=== PATIENT | male | born 1955 | race Caucasian/White ===

== ENCOUNTER 2025-04-08 15:37 | Emergency (ER) | payer MEDICARE, SELFPAY ==
--- NOTE | ~2025-04-08 | CT_ITS ---
CTA chest PE protocol HISTORY:dyspnea, positive d-dimer . COMPARISON: None. TECHNIQUE: Following the noncontrasted gas plant dispatcher, axial images of the thorax were obtained following infusion of 100 cc of Isovue 370. Post-processing on an independent workstation was performed to reconstruct MIP images for evaluation of the thoracic vasculature. FINDINGS: There is no pulmonary embolism, aortic dissection, thoracic aneurysm or pericardial fluid. There are groundglass opacities bilaterally. There fat-containing mass in the left posterior chest wall measuring 3.2 x 1.6 cm. No pleural effusion or pneumothorax is noted. There is no axillary, mediastinal or hilar adenopathy. Hepatic cyst measures 6.8 cm. Review of bone windows demonstrates no osteoblastic or lytic lesions. IMPRESSION: There is no pulmonary embolism, aortic dissection, pericardial fluid or thoracic aneurysm. Groundglass opacities are present bilaterally. Fat-containing mass within the left posterior chest wall measuring 3.2 x [address] scans at this facility are performed using low dose modulation techniques as appropriate to perform exam including the following: automated exposure control; use of iterative reconstruction technique; adjustment of the mA and/or kV according to patient size (this includes techniques or standardized protocols for targeted exams where dose is matched to indication/reason for exam). Reviewed, dictated and finalized at location S. IMPRESSION: There is no pulmonary embolism, aortic dissection, pericardial fluid or thoraci c aneurysm. Groundglass opacities are present bilaterally. Fat-containing mass within the left posterior chest wall measuring 3.2 x 1.[address] scans at this facility are performed using low dose modulation techniqu es as appropriate to perform exam including the following: automated exposure c ontrol; use of iterative reconstruction technique; adjustment of the mA and/or kV according to patient size (this includes techniques or standardized protocol s for targeted exams where dose is matched to indication/reason for exam).
--- NOTE | ~2025-04-08 | XR_ITS ---
EXAMINATION: XR chest 2V, 04/08/2025 16:16 CDT HISTORY: dyspnea COMPARISON: No comparisons available. Technique: 2 views obtained. Findings: The lungs are clear, no effusion. No pneumothorax. Heart is normal size. Mediastinal and hilar contours are within normal limits. Bony thorax no acute abnormality. Impression: No acute cardiopulmonary abnormality. Reviewed, dictated and finalized at location P. Impression: No acute cardiopulmonary abnormality.
--- NOTE | ~2025-04-08 | US_ITS ---
EXAMINATION: US venous doppler LE RT, 04/08/2025 16:20 CDT HISTORY: leg swelling Comparison: None Technique: Herring-scale and color Doppler images were attempted of the lower saphenofemoral junction, common femoral vein,superficial femoral vein, proximal deep femoral vein, proximal deep femoral vein, popliteal vein and posterior tibial veins. Findings: Deep Venous System:Normal flow, augmentation and compressibility. No echogenic thrombus identified. The contralateral saphenofemoral junction appears unremarkable. Superficial Venous SystemNo superficial thrombophlebitis. Soft tissues: Soft tissues are unremarkable. Impression: Negative for DVT. Reviewed, dictated and finalized at location P. Impression: Negative for DVT.
[2025-04-08 15:42] VITALS: BP 155/82; PULSE 68; RESP 16; TEMP 36.6; O2SAT 98
[2025-04-08 15:50] VITALS: BP 146/85; PULSE 63; RESP 18; O2SAT 96
[2025-04-08 15:51] VITALS: PULSE 65; RESP 19; O2SAT 96
--- NOTE | 2025-04-08 15:57 | ECG_ITS ---
Test Date: 2025-04-08 16:06:55 Measurements Intervals [place] Rate: 55 P: -22 UT: 172 QRS: 46 QRSD: 87 T: 59 QT: 422 QTc: 407 Interpretive Statements SINUS BRADYCARDIA NONSPECIFIC T-WAVE ABNORMALITY- LAT/HIGH LAT LEADS BASELINE ARTIFACT- I, II, AVR, AVF BORDERLINE ECG No previous ECG available for comparison Electronically Signed On 04-08-2025 16:15:43 CDT by Alexy Garvin D.O.
--- NOTE | 2025-04-08 15:58 | ED_ITS ---
HPI - Extremity Problem General Chief complaint: Extremity Problem,Nontraumatic Stated complaint: R Leg Swelling Time Seen by Provider: 04/08/25 15:47 Source: patient and RN notes reviewed Mode of arrival: ambulatory Limitations: no limitations History of Present Illness HPI Narrative: 70-year-old male presents to the ER complaining of right lower leg swelling intermittently for the last month. Patient says gotten worse over the last couple days. Patient also reports intermittent pain in his leg. Patient denies any swelling to his left lower extremity. Patient also reports mild dyspnea but denies any chest pain. Patient denies any dizziness, lightheadedness, nausea vomiting, difficulty breathing, fevers, eczema chills, cough, or any other symptoms. Patient denies any cardiac history. Patient is from [place] and is down here on a trip. Related Data Allergies Allergy/AdvReac Type Severity Reaction Status Date / Time No Known Allergies Allergy Verified 04/08/25 15:40 Review of Systems 2 Review of Systems: CONSTITUTIONAL: Denies fever, chills, or sweats. EYES: Denies visual changes, redness, or discharge. ENT: Denies rhinorrhea, congestion, sore throat, or otalgia. CARDIOVASCULAR: Denies chest pain, palpitations, dizziness, lightheadedness, or orthopnea. Positive for edema. RESPIRATORY: Denies cough or dyspnea at rest, difficulty breathing. Positive for dyspnea with exertion. GASTROINTESTINAL: Denies abdominal pain, nausea, vomiting, or diarrhea. GENITOURINARY: Denies dysuria or hematuria. SKIN: Denies rash or itching. MUSCULOSKELETAL: Denies back pain, joint pain, or myalgia. NEUROLOGIC: Denies headache, numbness, or weakness. PSYCHIATRIC: Denies anxiety or depression. All other systems reviewed are negative, except as documented in HPI. PMFSH Comments At the time of my signature, I reviewed and agree with the nursing past medical, surgical, social, and family history. There is no relevant family history pertinent to the patient complaint. Exam 2 Narrative: GENERAL: This is a well-nourished, well-developed adult, in no apparent distress. They are non ill-appearing, nontoxic appearing. HEAD: normocephalic, atraumatic. EYES: Sclera clear/white. Conjunctiva normal. Vision is grossly intact. Extraocular movements intact EARS: External ears normal, Hearing grossly intact. NOSE: External nose normal THROAT: Mucous membranes moist, NECK: Neck supple, CARDIOVASCULAR: Regular rate and rhythm without murmurs, gallops, or rubs. RESPIRATORY: Diminished to bilateral lower lobes.. Breath sounds equal bilaterally. No wheezes, rales, or rhonchi. GASTROINTESTINAL: Abdomen soft, non-tender, nondistended. Bowel sounds are active. No hepato-splenomegaly, or palpable masses. No guarding. SKIN: warm, Dry, intact with no suspicious lesions or rash, good texture and turgor. NEURO: awake, alert, and oriented to person, place and time. There were no obvious focal neurologic abnormalities. EXTREMITIES: Right lower extremity: Mild pitting edema 1+, below the knee. Is swollen compared to the left lower extremity. Varicose veins are present. No palpable cord. No tenderness to the deep venous system. Capillary refill less than 2 seconds. Skin warm, pink, dry. Sensation intact. Neurovascular status intact. Course Course Emergency Course: Portions of this record may have been created with voice recognition software Vital Signs Vital signs: Vital Signs Temperature 97.8 F 04/08/25 15:42 Pulse Rate 68 04/08/25 15:42 Respiratory Rate 16 04/08/25 15:42 Blood Pressure 155/82 H 04/08/25 15:42 Pulse Oximetry 98 04/08/25 15:42 Oxygen Delivery Room Air 04/08/25 15:42 Temperature 97.8 F 04/08/25 15:42 Pulse Rate 65 04/08/25 15:51 Respiratory Rate 19 04/08/25 15:51 Blood Pressure 146/85 H 04/08/25 15:50 Pulse Oximetry 96 04/08/25 15:51 Oxygen Delivery Room Air 04/08/25 15:42 Reviewed MDM - Extremity (Nontraumatic) MDM Narrative Medical decision making narrative: Will rule out blood clot the patient's right lower extremity, given patient's shortness of breath, patient is having no chest pains, will obtain cardiac workup with CBC, CMP, D-dimer, troponin, coags, BNP, and chest x-ray patient's CBC is unremarkable,, chemistry unremarkable, BNP slightly elevated 289, not diagnostic for his age for heart failure, troponin negative, chest x-ray without any acute cardiopulmonary findings, venous Doppler study without any evidence of blood clot, patient has a positive D-dimer. Given patient's history of pulmonary embolisms will obtain chest CTA. Chest CTA shows ground-glass opacities to the bases of the lungs, no evidence of pulmonary embolism or any other acute findings.. Incidental finding of a fatty mass to the left posterior chest wall, likely lipoma. Discussed these findings with patient. Will treat for pneumonia with Augmentin and azithromycin. Patient vital signs hemodynamically stable. Patient nontoxic appearing, no apparent distress. Patient resting comfortably on stretcher. Discussed physical exam findings. Advised supportive measures and signs/symptoms to go to the ER. Pt is appropriate for outpt treatment and f/u. Differential Diagnosis Differential diagnosis: Likely lower extremity edema, deep vein thrombosis of lower extremity and other (Venous insufficiency, congestive heart failure, pulmonary edema, pulmonary embolism) Lab Data 04/08/25 16:10 04/08/25 16:10 Labs: Lab Results 04/08/25 Range/Units 16:10 WBC 7.7 (4.5-10.0) K/mm3 RBC 4.19 L (4.6-6.20) M/mm3 Hgb 12.7 L (14.0-18.0) g/dL Hct 38.5 L (42.0-52.0) % MCV 91.9 (80-100) fl MCH 30.3 (26-34) pg MCHC 33.0 (32-36) g/dl RDW 13.5 (11.5-14.5) % Plt Count 292 (150-375) k/mm3 MPV 10.0 (7.4-10.4) fl Immature Gran % (Auto) 0.5 (0-0.5) % Neut % (Auto) 85.6 H (45.5-73.1) % Lymph % (Auto) 9.2 L (18.3-44.2) % [place] % (Auto) 4.4 (2.6-8.5) % Eos % (Auto) 0.0 (0-4.4) % Baso % (Auto) 0.3 (0.2-1.2) % Lymph # (Auto) 0.71 L (0.9-3.2) K/mm3 [place] # (Auto) 0.3 (0.1-0.6) K/mm3 Eos # (Auto) 0.0 (0-0.3) K/mm3 Baso # (Auto) 0.0 (0.0-0.1) K/mm3 Abs Immat Gran (auto) 0.04 H (0.00-0.031) K/mm3 Absolute Neuts (auto) 6.6 (1.3-6.7) K/mm3 Absolute Nucleated RBC 0.000 (0.0-0.012) K/mm3 Nucleated RBC % 0.0 (0.0-0.2) % PT 13.0 (11.1-14.7) Seconds INR 1.0 APTT 26.6 (22.3-36.8) Seconds D-Dimer 1.34 H (<0.48) ug/mL Sodium 138 (137-145) mmol/L Potassium 4.0 (3.4-5.0) mmol/L Chloride 106 (98-107) mmol/L Carbon Dioxide 25 (22-30) mmol/L Anion Gap 7 (4-12) mmol/L BUN 16 (9-20) mg/dL Creatinine 0.82 (0.7-1.3) mg/dL Estim Creat Clear Calc 83 ml/min Estimated GFR > 60 (59 - ) Glucose 147 H (65-110) mg/dL Calcium 8.5 (8.4-10.2) mg/dL Total Bilirubin 0.8 (0.2-1.3) mg/dL AST 25 (17-59) U/L ALT 26 (6-50) U/L Alkaline Phosphatase 65 (38-126) U/L Troponin I < 0.012 (0.000-0.034) ng/mL NT-Pro-B Natriuret Pep 289 H (19.9-100) pg/mL Total Protein 6.5 (6.3-8.2) g/dL Albumin 4.0 (3.5-5.1) g/dL Imaging Data Radiologist's impression: ITS Impressions Chest X-Ray 04/08/25 16:35 Impression: No acute cardiopulmonary abnormality. Venous Doppler Study 04/08/25 16:59 Impression: Negative for DVT. Chest CTA 04/08/25 17:25 IMPRESSION: There is no pulmonary embolism, aortic dissection, pericardial fluid or thoracic aneurysm. Groundglass opacities are present bilaterally. Fat-containing mass within the left posterior chest wall measuring 3.2 x [address] scans at this facility are performed using low dose modulation techniques as appropriate to perform exam including the following: automated exposure control; use of iterative reconstruction technique; adjustment of the mA and/or kV according to patient size (this includes techniques or standardized protocols for targeted exams where dose is matched to indication/reason for exam). ECG Data EKG #1: Attestation EKG: I personally reviewed and interpreted this ECG as follows: ECG completion date: 04/08/25 ECG completion time: 16:06 Prior ECG tracings: not available for review EKG Interpretation: normal rate, bradycardia, sinus rhythm, no ST changes, normal QRS and NL axis Critical Care Time Critical Care Time Critical Care Time: No Discharge Plan Discharge Clinical Impression: Swelling of right lower extremity Pneumonia Qualifiers: Pneumonia type: due to unspecified organism Laterality: bilateral Lung location: lower lobe of lung Qualified Code(s): J18.9 - Pneumonia, unspecified organism Patient Disposition: Home Condition: Stable Instructions: Antibiotic Form, Pneumonia (ED), Venous Insufficiency (DC) Additional Instructions: There is no blood clot in her right lower extremity. Wear compression stockings to help with the swelling. Your chest CT does not show any evidence of a pulmonary embolism. Does show you have pneumonia. Cardiac workup was unremarkable today. Please take the antibiotics as directed, finish the course completely even if you start to feel better. Tylenol as needed for pain or fevers. Follow instructions on the bottle. Follow-up with your PCP in 3-5 days. Return to the ER if he developed worsening fevers, chest pains, difficulty breathing, vomiting, worsening leg swelling, dizziness, lightheadedness, or any serious concerns. Patient Language: [place] Prescriptions: New azithromycin 250 mg tablet See Rx Instructions .ROUTE .COMPLEX Qty: 6 0RF Rx Instructions: For 250 mg dose pack: take 500 mg today (day 1), then 250 mg for 4 days (days 2-5) amoxicillin-pot clavulanate 875-125 mg tablet 1 tablet PO Q12H 5 Days Qty: 10 0RF Follow-up/Referrals: PHYSICIAN NOT ON STAFF,NONSTAFF [Non-Staff] Time of Disposition: 17:52
[2025-04-08 16:19] LABS: Hematocrit 38.5 % (42.0-52.0); Hemoglobin 12.7 g/dL (14.0-18.0); Immature Granulocyte Percent A 0.5 % (0-0.5); Lymphocytes Absolute Auto 0.71 K/mm3 (0.9-3.2); Mean Corpuscular HGB Conc 33.0 g/dl (32-36); Mean Corpuscular Hemoglobin 30.3 pg (26-34); Mean Corpuscular Volume 91.9 fl (80-100); Nucleated Red Blood Cells Absolute Auto 0.000 K/mm3 (0.0-0.012); Nucleated Red Blood Cells Perc 0.0 % (0.0-0.2); Platelet Count Result 292 k/mm3 (150-375); Red Blood Count 4.19 M/mm3 (4.6-6.20); White Blood Count 7.7 K/mm3 (4.5-10.0)
[2025-04-08 16:26] LABS: INR 1.0; Prothrombin Time 13.0 Seconds (11.1-14.7)
[2025-04-08 16:27] LABS: Partial Thromboplastin Time 26.6 Seconds (22.3-36.8)
[2025-04-08 16:31] LABS: Alanine Aminotransferase 26 U/L (6-50); Albumin Level 4.0 g/dL (3.5-5.1); Alkaline Phosphatase 65 U/L (38-126); Anion Gap 7 mmol/L (4-12); Aspartate Amino Transferase 25 U/L (17-59); Bilirubin,Total 0.8 mg/dL (0.2-1.3); Blood Urea Nitrogen 16 mg/dL (9-20); Calcium 8.5 mg/dL (8.4-10.2); Carbon Dioxide 25 mmol/L (22-30); Chloride 106 mmol/L (98-107); Estimated CRCL calculation 83 ml/min; Estimated Glomerular Filt Rate > 60; Glucose 147 mg/dL (65-110); Potassium 4.0 mmol/L (3.4-5.0); Sodium 138 mmol/L (137-145); Total Protein 6.5 g/dL (6.3-8.2)
[2025-04-08 16:41] LABS: NT Pro B Type Natriuretic Pept 289 pg/mL (19.9-100); Troponin I < 0.012 ng/mL (0.000-0.034)
--- OUTSIDE RECORDS SUMMARY | 2025-04-08 17:08 | XMS_ITS | Encounter Summary ---
Author Organization [facility] Address [address] [place] [address] Phone Care Team Providers Care Beef Tagger Name Role Phone Provider, No-Primary Care Primary Care Provider Unavailable Neelam Landaverde MD, James Unavailable [phone] Sridevi Mack Primary Care Provider [phone] Arturo Orona MD Unavailable [phone] Joy Alvarez Primary Care Provider [phone] Encounter Details Date Type Department Care Team (Late st Contact Info) Description 09/26/2022 Pharmacy Visit [facility] - Pharmacy - Discharge [address] [place] [address] Social History Tobacco Use Types Packs/Day Years Used Date Smoking Tobacco: Never Smokeless Tobacco: Never Alcohol Use Standard Drinks/Week Comments Yes 2 (1 standard drink = 0.6 oz pur e alcohol) 1 or more times a month Abuse Risk Answer Date Recorded Are you in an UNsafe relationship? No 09/25/2022 Does your partner/boyfriend or girlfriend hit, kick, hurt, or threaten you? No 09/25/2022 Have you suffered any injury as a result of abuse in the past year? No 09/25/2022 Does your partner/boyfriend or girlfriend ever try to control you by threatening you or your family? No 04/12/2 023 Are you currently being forc ed to engage in sexual activity? No 09/25/2022 Are you being abused or thre atened in your work or home environment? No 09/25/2022 Are you being forced to work? No Is the patient a d ependent adult ? Does not apply 09/25/2022 Do you feel unsafe at home? No 09/14 Has anyone tried to force yo u to sign papers or to use your money against your will? No 09/25/2022 Sex and Gender Information Value Date Recorded Sex Assigned at Not on file Legal Sex Male 5:16 AM CDT Gender Identity Not on file Sexual Orientation Not on file Occupation Industry Job Start Date Job End Date [employer] Not on file Not on file Not on file documented as of this encounter Plan of Treatment Upcoming Encounters Date Type Department Care Team (Late st Contact Info) Description 01/30/2026 2:55 PM CDT Appointment [place] - IR - Radiology [address] [phone] 01/30/2026 4:00 PM CDT Appointment [facility] - Otolaryngology [address] [phone] Arturo Orona MD [address] [place] [phone] documented as of this encounter Visit Diagnoses Not on filedocumented in this encounter Additional Health Concerns Assessment Noted Time A fall risk assessment has been complete d for the patient 09/25/2022 8:49 PM CDT documented as of this encounter Care Teams Beef Tagger Relationship Specialty Start Date End Date Provider, No-Primary Care [place] PCP - General 02/07/23 03/31/24 Sridevi Mack [address] [place] [phone] PCP - General Family Practice 04/01/24 01/30/25 Joy Alvarez [address] [place] [phone] PCP - General Family Practice 01/31/25 Sukhdeep Richter MD [address] [place] [address] Orthopedic Surgery 02/07/23 08/03/23 Arturo Orona MD [address] [place] [address] Otolaryngology 04/01/24 documented as of this encounter
--- OUTSIDE RECORDS SUMMARY | 2025-04-08 17:08 | XMS_ITS | Clinical Summary ---
Author Organization [facility] Address [address] [place] [address] Care Team Providers Care Mica Laminating Machine Feeder Name Role Phone Unavailable Primary Care Provider Unavailabl e Source Comments This disclosure is being made pursuant to the [employer] program and maynot contain all information available regarding this patient.[employer] Allergies No known active allergies Medications rOPINIRole (REQUIP) 0.5 MG tablet Take by mouth. Take 1/2 or 1 tab at bedtime Active gabapentin (NEURONTIN) 300 MG capsule Take 300 mg by mouth. Take 1 in the morning and 2 tabs at night Active citalopram (CELEXA) 20 MG tablet Take 20 mg by mouth daily. Active Diclofenac Potassium 50 MG PACK Take by mouth. Take 1-1/2 tabs twice daily (75mg) Active aspirin 81 MG EC tablet Take 81 mg by mouth daily. Active [place] Gomes Wort 300 MG TABS Take 1 tablet by mouth daily. Active saw palmetto 160 MG capsule Take 160 mg by mouth every evening. Active doxazosin (CARDURA) 4 MG tablet Take 4 mg by mouth nightly. Active Loratadine-Pseu doephedrine (ALAVERT ALLERGY/SINUS PO) Take 1 tablet by mouth every 12 (twelve) hours. Active tadalafil (CIALIS) 5 MG tablet Take 5 mg by mouth as needed for Erectile Dysfunction. Active rivaroxaban (XARELTO) 20 MG TABS tablet Take 20 mg by mouth daily. Active mupirocin (BACTROBAN) 2 % ointment APPLY TO AFFECTED AREA(S) TWO TIMES A DAY 06/05/2020 Active sulfamethoxazol e-trimethoprim 800-160 MG per tablet Take 1 tablet by mouth 2 (two) times daily with meals. 06/12/2020 Active traMADol (ULTRAM) 50 MG tablet Take 50 mg by mouth every 12 (twelve) hours. 06/12/2020 Active Active Problems No known active problems Immunizations Immunization Administration Dates Next Due Influenza H1N1 preservative free 04/27/2009 Influenza, inactivated, quad rivalent, ALL AGES 6 months and older, single dose syringe/vial 03/25/2020 Influenza, unspecified formulation 02/24,03/31/2017,03/16/2017,2015,03/01/2013 LIVE Zoster (Zostavax) ZVL 05/06/2016 Pneumococcal Conjugate-13 (P revnar 13) PCV13 06/19/2018 Tetanus, diphtheria and acel lular pertussis (Boostrix)Tdap 11/19/2018 Zoster (Shingrix) RZV 05/22/2018,01/19/2018 Family History Medical History Relation Name Comments Heart disease Father Diabetes Mother Heart disease Mother Relation Name Status Comments Father Alive Mother Alive Social History Tobacco Use Types Packs/Day Years Used Date Smoking Tobacco: Never Smokeless Tobacco: Never Tobacco Cessation:Counseling Given: Yes Alcohol Use Standard Drinks/Week Comments Yes 0 (1 standard drink = 0.6 oz pur e alcohol) Sex and Gender Information Value Date Recorded Sex Assigned at Not on file Legal Sex Male 8:00 PM CDT Gender Identity Not on file Sexual Orientation Not on file Last Filed Vital Signs Vital Sign Reading Time Taken Comments Blood Pressure 146/88 09/27/2022 12:43 AM CDT Pulse 74 09/27/2022 12:43 AM CDT Temperature 37.1 C (98.8 F) 09/26/2022 9:08 PM CDT Respiratory Rate 18 09/27/2022 12:43 AM CDT Oxygen Saturation 98% 09/27/2022 12:43 AM CDT Inhaled Oxygen Concentration - - Weight 98.7 kg (217 lb 8 oz) 09/26/2022 9:08 PM CDT Height 182.9 cm (6') 09/26/2022 9:08 PM CDT Body Mass Index 29.5 09/26/2022 9:08 PM CDT Plan of Treatment Health Maintenance Due Date Last Done Comments CT Colonography 1957 Colonoscopy 1957 Colorectal Cancer Screening 1957 Fecal DNA Test 1957 Lab-Cholesterol Screening 1957 Sigmoidoscopy 1957 Annual Wellness Visit 1975 FOBT/FIT 1977 Pneumococcal Vaccines 50+ (2 of 2 - PCV20 or PCV21) 06/19/2019 06/19/2018 COVID-19 Vaccine (4 - 2024- season) 2025 05/16/2021, 09/29/2020, 09/01/2020 Influenza Vaccine (#1) 2025 , 03/28/2021, 03/25/2020, Additional history exists Tetanus/Pertussis Vaccine Teen/Adult (2 - Td or Tdap) 11/19/2028 11/19/2018 RSV Adult (1 - 1-dose 75+ series) 02/03/2032 Lab-Hepatitis C Screening Completed 01/12/2016 Zoster (Shingles) Vaccine 50+ Completed 05/22/2018, 01/19/2018, 05/06/2016 HIB Vaccine Aged Out No longer eligi ble based on patient's age to complete this topic HPV Vaccine (9-26yo & Shared Decision 27-45yo) Aged Out No longer eligible based on patient's age to complete this topic Hepatitis A Vaccine Aged Out No longe r eligible based on patient's age to complete this topic IPV Vaccine Aged Out No longer eligi ble based on patient's age to complete this topic Meningococcal Conjugate Vaccine Aged Out No longer eligible based on patient's age to complete this topic RSV < 20 Months Aged Out No longer el igible based on patient's age to complete this topic Procedures Procedure Name Priority Date/Time Associated Diagnosis Comments HEPATITIS C ANTIBODY Routine 01/12/2016 8:59 AM CDT from Last 3 Months or Most Recently Relevant to Health Maintenance Results * Hepatitis C antibody (01/12/2016 8:59 AM CDT) Hep C Ab NONREACTIVE NONREACTIVE [facility] Comment:@ 01/12/2016 8:59 AM CDT 01/12/2016 3:42 PM CDT us Huber Morin DO LAB BLOOD ORDERABLES Final Resul t Performing Organization Address City/State/[facility] Co de Phone Number [facility] [address] [place], [place] from Last 3 Months or Most Recently Relevant to Health Maintenance
--- OUTSIDE RECORDS SUMMARY | 2025-04-08 17:08 | XMS_ITS | Encounter Summary ---
Author Organization [facility] Care Address [address] [place] [address] Phone Care Team Providers Care Cosmetic Account Coordinator Name Role Phone Huber Morin Primary Care Provider [phone] Provider, No-Primary Care Unavailable Unasaman koenig Provider, No-Primary Care Primary Care Provider Unavailable Neelam Landaverde MD, Sukhdeep Unavailable [phone] Sridevi Mack Primary Care Provider [phone] Arturo Orona MD Unavailable [phone] Joy Alvarez Primary Care Provider [phone] Encounter Details Date Type Department Care Team (Late st Contact Info) Description 03/07/[address] 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 Not on file Not on file documented as of this encounter Plan of Treatment Upcoming Encounters Date Type Department Care Team (Late st Contact Info) Description 01/30/2026 2:55 PM CDT Appointment [place] - IR - Radiology [address] [phone] 01/30/2026 4:00 PM CDT Appointment [place] - IRL - Otolaryngology [address] [phone] Arturo Orona MD [address] [place] [phone] documented as of this encounter Results * [facility] [employer] AP & LAT HIP (03/07/2009 2:39 PM CDT) Anatomical Region Laterality Modality lower extremity RAD MSK modality Impressions 03/08/2009 1:13 PM CDT Findings/impression: A left intramedullary bernadette and femoral neck fixation hardware is visualized. Alignment is near anatomical and there is no evidence of hardware complication. A fixation plate and multiple compression screws are visualized in the distal femur on the right. There is no evidence of hardware complication. Osseous alignment is near anatomical, and unchanged from prior study. Narrative 03/08/2009 1:13 PM CDT Indication: Evaluate healing. Technique: AP and lateral views of both hips and femurs were obtained. Comparison is made prior study from 01/24/2009. Procedure Note Urszula Butcher MD / Otto Rankin MD - 03/08/2009 Indication: Evaluate healing. Technique: AP and lateral views of both hips and femurs were obtained. Comparison is made prior study from 01/24/2009. IMPRESSION Findings/impression: A left intramedullary bernadette and femoral neck fixation hardware is visualized. Alignment is near anatomical and there is no evidence of hardware complication. A fixation plate and multiple compression screws are visualized in the distal femur on the right. There is no evidence of hardware complication. Osseous alignment is near anatomical, and unchanged from prior study. us Sukhdeep Landaverde MD RAD GEN ORDERABLES Final Resu lt documented in this encounter Visit Diagnoses Diagnosis Pain in limb Pain in soft tissues of limb Pain in limb Pain in soft tissues of limb documented in this encounter Care Teams Cosmetic Account Coordinator Relationship Specialty Start Date End Date Huber Morin [address] [place] [id number] PCP - General 09/11/12 05/02/13 Provider, No-Primary Care [place] PCP - Accountable Care Organization 08/28/12 10/07/12 Provider, No-Primary Care [place] PCP - General 02/07/23 03/31/24 Sridevi Mack [address] [place] [phone] PCP - General Family Practice 04/01/24 01/30/25 Joy Alvarez [address] [place] [phone] PCP - General Family Practice 01/31/25 Sukhdeep Richter MD [address] [place] [address] Orthopedic Surgery 02/07/23 08/03/23 Arturo Orona MD [address] [place] [address] Otolaryngology 04/01/24 documented as of this encounter
--- OUTSIDE RECORDS SUMMARY | 2025-04-08 17:08 | XMS_ITS | Encounter Summary ---
Author Organization [facility] Care Address [address] [place] [address] Phone Care Team Providers Care Heel Burnisher Name Role Phone Provider, No-Primary Care Primary Care Provider Unavailable Neelam Landaverde MD, James Unavailable [phone] Sridevi Mack Primary Care Provider [phone] Arturo Orona MD Unavailable [phone] Joy Alvarez Primary Care Provider [phone] Encounter Details Date Type Department Care Team (Late st Contact Info) Description 11/06/2016 Pharmacy Visit [facility] - Pharmacy - ASC [address] [place] [address] Social History Tobacco Use Types [...] Info) Description 01/30/2026 2:55 PM CDT Appointment [place] - L - Radiology [address] [place] [phone] 01/30/2026 4:00 PM CDT Appointment [place] - IRL - Otolaryngology [address] [phone] Arturo Orona MD [address] [place] [address] documented as of this encounter Visit Diagnoses Not on filedocumented in this encounter Care Teams Heel Burnisher Relationship Specialty Start Date End Date Provider, No-Primary Care [place] PCP - General 02/07/23 03/31/24 Sridevi Mack [address] [place] [phone] PCP - General Family Practice 04/01/24 01/30/25 Joy Alvarez [address] [place] [phone] PCP - General Family Practice 01/31/25 Sukhdeep Richter MD [address] [place] [address] Orthopedic Surgery 02/07/23 08/03/23 Arturo Orona MD [address] [place] [address] Otolaryngology 04/01/24 documented as of this encounter
--- OUTSIDE RECORDS SUMMARY | 2025-04-08 17:08 | XMS_ITS | Encounter Summary ---
Author Organization [facility] Care Address [address] [place] [address] Phone Care Team Providers Care Television Inspector Name Role Phone Huber Morin Primary Care Provider [phone] Provider, No-Primary Care Unavailable Unasaman jacobole Provider, No-Primary Care Primary Care Provider Unavailable Neelam Landaverde MD, Sukhdeep Unavailable [phone] Sridevi Mack Primary Care Provider [phone] Arturo Orona MD Unavailable [phone] Joy Alvarez Primary Care Provider [phone] Encounter Details Date Type Department Care Team (Late st Contact Info) Description 12/07/2008 [facility] [address] [place] [address] Maryana Guillen Social History Tobacco Use Types Packs/Day Years [...] Info) Description 01/30/2026 2:55 PM CDT Appointment [facility] - Radiology [address] [phone] 01/30/2026 4:00 PM CDT Appointment [facility] - Otolaryngology [address] [phone] Arturo Orona MD [address] [place] [phone] documented as of this encounter Results * CT BRAIN WO CONTRAST (12/07/2008 7:33 AM CDT) Anatomical Region Laterality Modality Head Computed Tomogra phy Impressions 12/13/2008 1:18 PM CDT Impression: 1. There has been interval resolution of intracranial hemorrhage. 2. 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 3. No acute intracranial findings. Narrative 12/13/2008 1:18 PM CDT Indication: Subarachnoid hemorrhage with facial fractures. Please evaluate for hemorrhage. Technique: A CT examination of the brain dated 12/07/2008, is submitted for interpretation on 12/12/2008 and compared to prior exam on 10/13/2008. The examination was performed without contrast in the direct axial plane. Both bone and soft tissue windows were reviewed. Findings: There has been interval removal of the postsurgical skin nathalie. There is encephalomalacia in the inferior left frontal lobe at the area of prior hemorrhagic contusion. There has been interval resolution of the previously demonstrated subarachnoid hemorrhage. There is decrease in the right frontal subdural fluid collection since the previous exam. There is no new intracranial hemorrhage. There is no large vascular distribution acute ischemia. Normal ventricular size. There is no intracranial mass or mass effect. Multiple frontal skull fractures again noted. Again seen are postoperative changes in the left overlying the left frontal sinus with small plate and screws, grossly unchanged. Frontal sinus cranialization is again noted with opacification of the frontal sinus. The remaining paranasal sinuses and mastoid air cells are clear. There is small soft tissue thickening of the left temporal region. Procedure Note Shen Mi MD / Angela Muniz MD - 12/13/2008 Indication: Subarachnoid hemorrhage with facial fractures. Please evaluate for hemorrhage. Technique: A CT examination of the brain dated 12/07/2008, is submitted for interpretation on 12/12/2008 and compared to prior exam on 10/13/2008. The examination was performed without contrast in the direct axial plane. Both bone and soft tissue windows were reviewed. Findings: There has been interval removal of the postsurgical skin nathalie. There is encephalomalacia in the inferior left frontal lobe at the area of prior hemorrhagic contusion. There has been interval resolution of the previously demonstrated subarachnoid hemorrhage. There is decrease in the right frontal subdural fluid collection since the previous exam. There is no new intracranial hemorrhage. There is no large vascular distribution acute ischemia. Normal ventricular size. There is no intracranial mass or mass effect. Multiple frontal skull fractures again noted. Again seen are postoperative changes in the left overlying the left frontal sinus with small plate and screws, grossly unchanged. Frontal sinus cranialization is again noted with opacification of the frontal sinus. The remaining paranasal sinuses and mastoid air cells are clear. There is small soft tissue thickening of the left temporal region. IMPRESSION Impression: 1. There has been interval resolution of intracranial hemorrhage. 2. 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 3. No acute intracranial findings. us Jean Pierre Stapleton MD RAD CT ORDERABLES Final Res ult documented in this encounter Visit Diagnoses Diagnosis SAH (subarachnoid hemorrhage) (HCC) Subarachnoid hemorrhage SAH (subarachnoid hemorrhage) (HCC) Subarachnoid hemorrhage documented in this encounter Care Teams Television Inspector Relationship Specialty Start Date End Date Huber Morin [address] [place] [id number] PCP - General 09/11/12 05/02/13 Provider, No-Primary Care [place] PCP - Accountable Care Organization 08/28/12 10/07/12 Provider, No-Primary Care [place] PCP - General 02/07/23 03/31/24 Sridevi Mack [address] [place] [phone] PCP - General Family Practice 04/01/24 01/30/25 Joy Alvarez [address] [place] [phone] PCP - General Family Practice 01/31/25 Sukhdeep Richter MD [address] [place] [address] Orthopedic Surgery 02/07/23 08/03/23 Arturo Orona MD [address] [place] [address] Otolaryngology 04/01/24 documented as of this encounter
--- OUTSIDE RECORDS SUMMARY | 2025-04-08 17:08 | XMS_ITS | Clinical Summary ---
Author Organization [facility] Care Address [address] [place] [address] Phone Care Team Providers Care Roof Technician Name Role Phone Jimmy Rodriguez MD Unavailable [phone] Joy Alvarez Primary Care Provider [phone] Source Comments This disclosure is being made pursuant to the Care Everywhere program,applicable federal and state laws, and may not contain all informationavailable regarding this patient.[facility] Practices Allergies Active Allergy Reactions Criticality Noted Date Comments No Known Allergies NO REACTION 10/15/2008 Medications pantoprazole 40 mg EC tablet Take 1 tablet (40 mg total) by mouth daily. Active cyclobenzaprin e 10 mg tablet as needed. 02/12/20 19 Active citalopram 20 mg tablet 1 tablet (20 mg total) daily. 02/12/20 19 Active sodium chloride 0.65 % nasal sprayIndicatio ns:Nasal deformity Use 1 spray into both nostrils 3 times daily as needed for congestion. 45 mL 11 11/04/19 20 Active saw palmetto 160 mg capsule Take 1 capsule (160 mg total) by mouth. Active traMADol 50 mg tablet Take 1 tablet (50 mg total) by mouth every 12 hours. 10/26/19 21 Active escitalopram oxalate (LEXAPRO) 10 mg tablet Take 1 tablet (10 mg total) by mouth daily. Active metroNIDAZOLE 0.75 % creamIndicatio ns:Acne rosacea Apply topically daily. To entire clean & dry face. 45 g 3 03/04/20 22 Active diclofenac PO Take 75 mg by mouth 2 times daily. Active VENTOLIN HFA 90 mcg/Actuation HFA inhaler INHALE ONE TO TWO PUFFS BY MOUTH EVERY 4 TO 6 HOURS NEEDED 07/16/19 Active red yeast rice 600 mg capsule Take 2 capsules (1,200 mg total) by mouth daily. Active budesonide (PULMICORT) 0.5 mg/2 mL inhalation suspensionIndi cations:Postna katlyn drip 2 mL (0.5 mg total) daily. Combine with saline irrigation, use intranasally. To be used for sinus rinse. Add 2cc vial to 8 oz saline solution. 60 mL 02/02/20 24 Active famotidine (PEPCID) 40 mg tablet Take 1 tablet (40 mg total) by mouth daily at bedtime. 03/22/20 24 Active pregabalin (LYRICA) 75 mg capsuleIndicat ions:Throat clearing Take 1 capsule (75 mg total) by mouth 2 times daily. Take one pill, 75 mg, nightly for 2 weeks. Then start taking twice a day. 90 capsule 5 03/25/20 24 Active ipratropium 0.03 % nasal spray Use 2 sprays into both nostrils 2 times daily. 12/25/19 25 Active montelukast 10 mg tablet Take 1 tablet (10 mg total) by mouth daily at bedtime. 12/26/19 25 Active fluticasone-sa lmeterol (ADVAIR DISKUS 250-50) 250-50 mcg/dose diskus inhaler Use 1 puff by inhalation 2 times daily. 12/29/19 25 Active azelastine (ASTELIN) 0.1 % (137 mcg) nasal sprayIndicatio ns:Acid reflux SPRAY TWO PUFFS IN EACH NOSTRIL NOSTRIL TWICE A DAY DIRECTED 30 mL 04/04/20 25 Active azelastine (ASTELIN) 0.1 % (137 mcg) nasal sprayIndicatio ns:Acid reflux Use 2 sprays into both nostrils 2 times daily. Use in each nostril as directed. 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 Hypertrophy of both inferior nasal turbinates Deviated septum 06/01/2019 Nasal obstruction 04/21/2019 Closed displaced fracture of nasal bone with routine healing 11/23/2018 Sleep-disordered breathing 05/01/2018 Bilateral carpal tunnel syndrome 11/15/2016 Arthritis of left hip 09/28/2014 Knee pain 05/27/2014 Hip pain, bilateral 05/27/2014 Frontal sinus fracture 11/27/2012 Anosmia 11/27/2012 Encounter for physical therapy 05/20/2011 Pain in limb 10/13/2008 Open fracture of unspecified part of lower end o f femur 10/07/2008 Injury, other and unspecified, unspecified site 10/06/2008 Open fracture of unspecified part of femur 10/06 Resolved Problems Problem Noted Date Diagnosed Date Resolved Date Anticoagulated 06/01/2019 10/19/2019 Recurrent sinusitis 10/19/2016 04/20/20 19 Shortness of breath 10/19/2016 04/20/20 19 Encounters Date Type Department Care Team Description 04/04/2025 Refill [facility] Otolaryngology [address] [place] [phone] Jimmy Rodriguez MD 01/31/2025 10:45 AM CDT Office Visit [facility] Otolaryngology [address] [place] [phone] Jimmy Rodriguez MD 01/31/2025 Travel from Last 3 Months Immunizations Immunization Administration Dates Next Due COVID-19, mRNA (MODERNA) 100mcg/0.5mL 05/16/2021 ,09/29/2020,09/01/2020 Influenza 02/24/2018,03/01/2013 Influenza, Quadrivalent Adjuvanted PF 04/30/2022 Influenza, quadrivalent 03/31/2017 Influenza, quadrivalent PF 03/28/2021,,03/28/2019,2017,03/22/2016 Influenza, unspecified 02/24/2018,03/16/2017,12/2015 Novel Influenza H1N1, PF 04/27/2009 Pneumococcal Conjugate, PCV1 3 (Prevnar 13) 06/19/2018 Pneumococcal Polysaccharide, PPSV23 (Pneumovax 23) 12/27/2020 Tdap 11/19/2018 Zoster, live (Zostavax) 05/06/2016 Zoster, recombinant (Shingrix) 05/22/2018,2017 Family History Medical History Relation Comments No Known Problems Daughter Cancer Father Diabetes Father Heart Disease Father High Cholesterol Father Cancer Maternal Grandfather Hypertension Maternal Grandmother Arthritis Mother Deseased Arthritis-rheumatoid Mother Cancer Mother deseased Heart Disease Mother High Cholesterol Mother Hypertension Mother Diabetes Paternal Grandfather Hypertension Paternal Grandfather Diabetes Paternal Grandmother Hypertension Paternal Grandmother No Known Problems Son 1 No Known Problems Son 2 Relation Status Comments Daughter Father Alive Maternal Grandfather (Age 60) cancer Maternal Grandmother (Age 80) heart Mother Alive Paternal Grandfather (Age 72) diabetes Paternal Grandmother (Age 80) diabetes Son 1 Son 2 Social History Tobacco Use Types Packs/Day Years Used Date Smoking Tobacco: Never Smokeless Tobacco: Never Tobacco Cessation:Counseling Given: No Alcohol Use Standard Drinks/Week Comments Yes 2 (1 standard drink = 0.6 oz pur e alcohol) 1 or more times a month Abuse Risk Answer Date Recorded Are you in an UNsafe relationship? Not on file 10/15/2023 Does your partner/boyfriend or girlfriend hit, kick, hurt, or threaten you? Not on file 10/15/2023 Have you suffered any injury as a result of abuse in the past year? Not on file 10/15/2023 Does your partner/boyfriend or girlfriend ever try to control you by threatening you or your family? Not on file 024 Are you currently being forc ed to engage in sexual activity? Not on file 10/15/2023 Are you being abused or thre atened in your work or home environment? Not on file 10/15/2023 Are you being forced to work? Not on file Is the patient a d ependent adult ? Does not apply 10/15/2023 Do you feel unsafe at home? Not on file 0 06/2023 Has anyone tried to force yo u to sign papers or to use your money against your will? Not on file 10/15/2023 Sex and Gender Information Value Date Recorded Sex Assigned at Not on file Legal Sex Male 5:16 AM CDT Gender Identity Not on file Sexual Orientation Not on file Occupation Industry Job Start Date Job End Date [employer] Not on file Not on file Not on file Last Filed Vital Signs Vital Sign Reading Time Taken Comments Blood Pressure 126/76 2024 8:19 AM CDT Pulse 74 2024 8:19 AM CDT Temperature 36.4 C (97.5 F) 2024 8:19 AM CDT Respiratory Rate 16 09/26/2022 10:22 AM CDT Oxygen Saturation 93% 09/26/2022 7:22 AM CDT Inhaled Oxygen Concentration - - Weight 96.4 kg (212 lb 8.4 oz) 01/31/2025 10:56 AM CDT Height 182.9 cm (6') 2024 8:19 AM CDT Body Mass Index 28.82 2024 8:19 AM CDT Plan of Treatment Upcoming Encounters Date Type Department Care Team (Late st Contact Info) Description 01/30/2026 2:55 PM CDT Appointment [place] - [facility] - Radiology [address] [phone] 01/30/2026 4:00 PM CDT Appointment [place] - [facility] - Otolaryngology [address] [phone] Jimmy Rodriguez MD [address] [place] [address] [phone] Health Maintenance Due Date Last Done Comments Prediabetes and Type 2 Diabe rob Screening 1955 Annual Physical Visit 02/03/1960 HCV Screening 1975 Lipid Disorder Screening 1978 CT Colonography 2002 Colonoscopy 2002 Colorectal Screening 2002 FIT-DNA 2002 FIT 2002 FOBT 2002 Flex Sigmoidoscopy 2002 Prostate Cancer Screening / Surveillance 2007 LDICL-CVGW-NmW-2 Vaccine ( season) 2025 05/16/2021, 09/29/2020, 09/01/2020 Influenza Vaccine: Seasonal (#1) 02/14/2025 06/18/2024, 04/30/2022, 03/28/2021, Additional history exists Pneumococcal Vaccine (3 of 3 - PCV20 or PCV21) 12/27/2025 12/27/2020, 06/19/2018 Tetanus Diphtheria Pertussis (2 - Td or Tdap) 11/19/2028 11/19/2018 Zoster Vaccine Completed 05/22/2018, 11/2017, 05/06/2016 Medical Devices Implanted Type Area Cellophane Worker Device Identifier Shelf Expiration Date Model / Serial / Lot Log [id number] - Tray Ao Dhs/Dcs Basic Inst/Screw - 1 - Plate Ao Dynamic Hip Screw Std 135 Deg2h 46mm Implanted:Qty: 1 on 10/06/2008 at [facility] Left: Femur SYNTHES Screw Ao Cecil 32.0mm Thread Length 95.0mm - [id number] Implanted:Qty: 1 on 10/06/2008 at [facility] Left: Femur SYNTHES [id number] / [id number] / Log [id number] - Tray Ao Dhs/Dcs Basic Inst/Screw - 1 - Screw Ao Hip Dynamic Compressing 3.5mm Hex Head 36mm Implanted:Qty: 1 on 10/06/2008 at [facility] Left: Femur SYNTHES Femoral Nail Implanted:Qty: 1 on 10/06/2008 at [facility] Left: Femur SYNTHES 01/15/2016 [id number] / / [id number] Description:Synthes Clamp Implanted:Qty: 4 on 10/06/2008 at [facility] Right: Leg SYNTHES [id number] / / Open Adjustable Clamps Implanted:Qty: 4 on 10/06/2008 at [facility] Right: Leg SYNTHES [id number] / / Screw Ao Titanium Locking [address] 5.0 30mm - [id number] Implanted:Qty: 1 on 10/06/2008 at [facility] Left: Femur SYNTHES [id number] / / Log [id number] - Tray Ao Dyn Hip Screw/Plate - 1 - Screw Ao Hip Dynamic Lag Screw 110mm Implanted:Qty: 1 on 10/06/2008 at [facility] Left: Femur SYNTHES [id number] / [id number] / Screw Locking Star [address] Titanium 5.0 X 85mm - [id number] Implanted:Qty: 1 on 10/06/2008 at [facility] Left: Femur SYNTHES [id number] / [id number] / Screw Ao Titanium Locking [address] 5.0 62mm - [id number] Implanted:Qty: 1 on 10/06/2008 at [facility] Left: Femur SYNTHES [id number] / Log [id number] - Tray Ao Periart Locking Femoral Plate - 1 - Plate Ao 4.5 Lcp Condylar Plate 12h Rt 278mm Implanted:Qty: 1 on 10/09/2008 at [facility] Right: Femur SYNTHES [id number] / / Log [id number] - Tray Ao Periarticular Lock Screw/Inst - 1 - Screw Ao Cecil Locking 5.0mm X 25mm Implanted:Qty: 2 on 10/09/2008 at [facility] Right: Femur SYNTHES [id number] / / Log [id number] - Tray Ao Periarticular Lock Screw/Inst - 1 - Screw Ao Cecil Locking 5.0mm X 70mm Implanted:Qty: 1 on 10/09/2008 at [facility] Right: Femur SYNTHES [id number] / / Log [id number] - Tray Ao Periarticular Lock Screw/Inst - 1 - Screw Ao Cecil Locking 5.0mm X 80mm Implanted:Qty: 1 on 10/09/2008 at [facility] Right: Femur SYNTHES [id number] / / Log [id number] - Tray Ao Periarticular Lock Screw/Inst - 1 - Screw Ao Cecil Locking 5.0mm X 85mm Implanted:Qty: 1 on 10/09/2008 at [facility] Right: Femur SYNTHES [id number] / / Log [id number] - Tray Ao Periarticular Lock Screw/Inst - 1 - Screw Ao Cecil Conical 7.3mm X 85mm Implanted:Qty: 1 on 10/09/2008 at [facility] Right: Femur SYNTHES [id number] / / Log [id number] - Tray Ao Locking Large Frag Lcp Screws - 1 - Screw Ao Cortex 4.5mm X 34.0mm Implanted:Qty: 1 on 10/09/2008 at [facility] Right: Femur SYNTHES [id number] / / Log [id number] - Tray Ao Locking Large Frag Lcp Screws - 1 - Screw Ao Cortex 4.5mm X 38.0mm Implanted:Qty: 1 on 10/09/2008 at [facility] Right: Femur SYNTHES [id number] / / Log [id number] - Tray Ao Locking Large Frag Lcp Screws - 1 - Screw Ao Cortex 4.5mm X 46.0mm Implanted:Qty: 1 on 10/09/2008 at [facility] Right: Femur SYNTHES [id number] / / Log [id number] - Tray Ao Locking Large Frag Lcp Screws - 1 - Screw Ao Cortex 4.5mm X 50.0mm Implanted:Qty: 1 on 10/09/2008 at [facility] Right: Femur SYNTHES / / Log [id number] - Tray Ao Locking Large Frag Lcp Screws - 1 - Screw Ao Cortex 4.5mm X 52.0mm Implanted:Qty: 1 on 10/09/2008 at [facility] Right: Femur SYNTHES [id number] / / Log [id number] - Tray Ao Locking Large Frag Lcp Screws - 1 - Screw Ao Cortex 4.5mm X 58.0mm Implanted:Qty: 2 on 10/09/2008 at [facility] Right: Femur SYNTHES [id number] / / Log [id number] - Tray Ao Locking Large Frag Lcp Screws - 1 - Screw Ao Locking Self-Tapping T25 Stardrive 5.0mm X 34mm Implanted:Qty: 1 on 10/09/2008 at [facility] Right: Femur SYNTHES [id number] / / Log [id number] - Tray Ao Locking Large Frag Lcp Screws - 1 - Screw Ao Locking Self-Tapping T25 Stardrive 5.0mm X 36mm Implanted:Qty: 1 on 10/09/2008 at [facility] Right: Femur SYNTHES [id number] / / Log [id number] - Tray Ao Locking Large Frag Lcp Screws - 1 - Screw Ao Locking Self-Tapping T25 Stardrive 5.0mm X 38mm Implanted:Qty: 4 on 10/09/2008 at [facility] Right: Femur SYNTHES [id number] / / Log [id number] - Tray Ao Locking Large Frag Lcp Screws - 1 - Screw Ao Locking Self-Tapping T25 Stardrive 5.0mm X 40mm Implanted:Qty: 1 on 10/09/2008 at [facility] Right: Femur SYNTHES [id number] / / Log [id number] - Tray Kls Maxillofacial Implant Inst T - 1 - Plate Micro Straight 4h Medium Implanted:Qty: 1 on 10/12/2008 at [facility] Bilateral: Head DOT [id number] / / Log [id number] - Tray Kls Maxillofacial Implant Inst T - 1 - Screw Cross-Drive Drill Free Micro 1.5mm X 4mm Implanted:Qty: 22 on 10/12/2008 at [facility] Bilateral: Head DOT [id number] / / Log [id number] - Tray Kls Maxillofacial Implant Inst T - 1 - Plate Micro L-Shape Right Long Implanted:Qty: 1 on 10/12/2008 at [facility] Bilateral: Head DOT [id number] / / Log [id number] - Tray Kls Maxillofacial Implant Inst T - 1 - Plate Micro Straight 4h Regular Implanted:Qty: 1 on 10/12/2008 at [facility] Bilateral: Head DOT [id number] / / Log [id number] - Tray Kls Maxillofacial Implant Inst T - 1 - Plate Micro Straight 6h Medium Implanted:Qty: 1 on 10/12/2008 at [facility] Bilateral: Head DOT [id number] / / [place] Suture Qfix 2.8mm - [id number] Implanted:Qty: 1 on 09/25/2022 by Rubia Richter MD at [facility] Right: Shoulder [employer] 05/17/2025 [id number] / / [id number] [place] Suture Qfix 2.8mm - [id number] Implanted:Qty: 1 on 09/25/2022 by Rubia Richter MD at [facility] Right: Shoulder [employer] 04/22/2025 [id number] / / [id number] [place] Suture Qfix 2.8mm - [id number] Implanted:Qty: 1 on 09/25/2022 by Rubia Richter MD at [facility] Right: Shoulder [employer] 05/21/2025 [id number] / / [id number] [place] Suture Qfix 2.8mm - [id number] Implanted:Qty: 1 on 09/25/2022 by Rubia Richter MD at [facility] Right: Shoulder [employer] 05/17/2025 [id number] / / [id number] Shoulder [place] Quattro Link 4.5mm - [id number] Implanted:Qty: 1 on 09/25/2022 by Rubia Richter MD at [facility] Right: Shoulder [employer] 07/01/2027 [id number] / / [id number] Shoulder [place] Quattro Link 4.5mm - [id number] Implanted:Qty: 1 on 09/25/2022 by Rubia Richter MD at [facility] Right: Shoulder [employer] 04/17/2027 [id number] / / [id number] Explanted Type Area Cellophane Worker Device Identifier Shelf Expiration Date Model / Serial / Lot Ao Screws Explanted:2010 by Sanjeev Zurita at [facility] (Quantity not on file) Left: Hip Description:ao dhs plate, La g screw and screw x 2 Removed and given to pt. Procedures Procedure Name Priority Date/Time Associated Diagnosis Comments NSL NDSC DX UNI/BI SPX Routine 01/31/2025 10:45 AM CDT Frontal sinus fracture (HCC) Nasal obstruction from Last 3 Months Results * NSL NDSC DX UNI/BI SPX (01/31/2025 10:45 AM CDT) Narrative Jimmy Rodriguez MD - 01/31/2025 10:45 AM CDT Jimmy Rodriguez MD 01/31/2025 4:39 PM Clinic Note Subjective: History of Present Illness Shahbaz Jaimes is a 69 y.o. male with a history of prior frontal sinus infections and some recent complaints of throat clearing. Patient Active Problem List Diagnosis Date Noted Throat clearing 08/07/2023 Acid reflux 08/07/2023 Tear of right rotator cuff, unspecified tear extent, unspecified whether traumatic 09/25/2022 History of nasal septoplasty 01/03/2021 Postnasal drip 08/17/2020 Nasal deformity 06/01/2019 Hypertrophy of both inferior nasal turbinates 06/01/2019 Deviated septum 06/01/2019 Nasal obstruction 04/21/2019 Closed displaced fracture of nasal bone with routine healing 11/23/2018 Sleep-disordered breathing 05/01/2018 Bilateral carpal tunnel syndrome 11/15/2016 Arthritis of left hip 09/28/2014 Knee pain 05/27/2014 Hip pain, bilateral 05/27/2014 Frontal sinus fracture (HCC) 11/27/2012 Anosmia 11/27/2012 Encounter for physical therapy 05/20/2011 Pain in limb 10/13/2008 Open fracture of unspecified part of lower end of femur 10/07/2008 Injury, other and unspecified, unspecified site 10/06/2008 Open fracture of unspecified part of femur 10/06/2008 Past Surgical History[1] Family History[2] Medication List Accurate as of January 31, 2025 4:34 PM. If you have any questions, ask your nurse or doctor. CONTINUE taking these medications Details azelastine 0.1 % (137 mcg) nasal spray Commonly known as: ASTELIN Use 2 sprays into both nostrils 2 times daily. Use in each nostril as directed. Diagnoses: Acid reflux budesonide 0.5 mg/2 mL inhalation suspension Commonly known as: PULMICORT 2 mL (0.5 mg total) daily. Combine with saline irrigation, use intranasally. To be used for sinus rinse. Add 2cc vial to 8 oz saline solution. Diagnoses: Postnasal drip citalopram 20 mg tablet Commonly known as: CeleXA 1 tablet (20 mg total) daily. cyclobenzaprine 10 mg tablet Commonly known as: FLEXERIL as needed. diclofenac PO Take 75 mg by mouth 2 times daily. escitalopram oxalate 10 mg tablet Commonly known as: LEXAPRO Take 1 tablet (10 mg total) by mouth daily. famotidine 40 mg tablet Commonly known as: PEPCID Take 1 tablet (40 mg total) by mouth daily at bedtime. fluticasone-salmeterol 250-50 mcg/dose diskus inhaler Commonly known as: ADVAIR DISKUS 250-50 Use 1 puff by inhalation 2 times daily. ipratropium 0.03 % nasal spray Commonly known as: ATROVENT Use 2 sprays into both nostrils 2 times daily. metroNIDAZOLE 0.75 % cream Commonly known as: METROCREAM Apply topically daily. To entire clean & dry face. Diagnoses: Acne rosacea montelukast 10 mg tablet Commonly known as: SINGULAIR Take 1 tablet (10 mg total) by mouth daily at bedtime. pantoprazole 40 mg delayed release tablet Commonly known as: PROTONIX Take 1 tablet (40 mg total) by mouth daily. pregabalin 75 mg capsule Commonly known as: LYRICA Take 1 capsule (75 mg total) by mouth 2 times daily. Take one pill, 75 mg, nightly for 2 weeks. Then start taking twice a day. Diagnoses: Throat clearing red yeast rice 600 mg capsule Take 2 capsules (1,200 mg total) by mouth daily. saw palmetto 160 mg capsule Take 1 capsule (160 mg total) by mouth. sodium chloride 0.65 % nasal spray Commonly known as: OCEAN SPRAY Use 1 spray into both nostrils 3 times daily as needed for congestion. Diagnoses: Nasal deformity traMADol 50 mg tablet Commonly known as: ULTRAM Take 1 tablet (50 mg total) by mouth every 12 hours. VENTOLIN HFA 90 mcg/Actuation HFA inhaler Generic drug: albuterol INHALE ONE TO TWO PUFFS BY MOUTH EVERY 4 TO 6 HOURS NEEDED Social History[3] Social History Social History Narrative Not on file Allergies[4] Objective: Wt 96.4 kg (212 lb 8.4 oz) BMI 28.82 kg/m Appearance: normal Communication: normal Head/Face: inspection - normal Skin: normal Ocular Motility: normal Ears: auricle (AD) - normal Nose: ext. inspection - normal Nasopharynx: normal Oral Cavity: lips - normal Oropharynx: mucosa - normal Hypopharynx: normal Larynx: mucosa - normal Cardiovascular: normal Respiratory: normal Neuro/Psych.: mood/affect - normal Nasal endoscopy (flexible) Data Reviewed old/outside records Assessment & Plan: Encounter Diagnoses ICD-10-CM 1. Frontal sinus fracture (HCC) S02.19XA 2. Nasal obstruction J34.89 Staff Physician Comments Data reviewed Note from 819 was reviewed. The patient was overall better. He was using Astelin budesonide rinse nipper Tropium. He was on CPAP for obstructive sleep apnea. For throat clearing he was referred to Dr. Alexander. Dr. Alexander note from 1010 shows gabapentin was unhelpful. He discussed possible neurogenic cough and the Lyrica trial. He was referred to speech therapy. A CT scan was discussed. Patient saw speech therapy on 11 4. Follow-up visit for Dr. Alexander for 4 4 was canceled. Procedure note Flexible fiberoptic nasal endoscopy Verbal consent was obtained and the nose examined with topical anesthetic gel. Examination of the nose shows no masses or polyps and no evidence of infection. Septal mucosa was unremarkable. The inferior turbinates inferior meati middle turbinates middle meati Superior turbinate superior meati and sphenoethmoidal recesses show clear mucus bilaterally. The nasopharynx is normal. Limited examination of the larynx hypopharynx and base of tongue is normal. Jimmy Rodriguez performed the entire procedure Staff physician comments Mr. Jaimes is a 69-year-old man who is seen today in follow-up accompanied by his . Overall his cough is improved. He has noted improvement on ipratropium and Astelin. He is not using budesonide rinses he is unsure of any benefit from this. The endoscopic exam looks good. He has some mild frontal contour abnormality. The patient is doing well today. He has no symptoms related to his prior frontal sinus fractures. I would recommend a CT scan on return in a year to exclude any condition such as delayed mucocele formation. He we will continue on Astelin for nasal drainage symptoms. We will plan to see him for routine follow-up in a year. The importance of follow-up was stressed as well as the importance of returning sooner should anything come up in the meantime. Staff Involved Staff Only Jimmy Rodriguez MD [1] Past Surgical History: Procedure Laterality Date ARTHROSCOPIC REPAIR OF ROTATOR CUFF OF SHOULDER Right 09/25/2022 Procedure: ARTHROSCOPY SHOULDER WITH ROTATOR CUFF REPAIR; Surgeon: Rubia Richter MD; Location: MAIN OR; Service: Orthopaedics CARPAL TUNNEL RELEASE Bilateral 11/06/2016 Procedure: CARPAL TUNNEL; Surgeon: Alfa Odell MD; Location: [facility]; Service: MUSC MYOQ/FASCQ FLAP HEAD&NCK 10/12/2008 Procedure:FRONTAL SINUS OBLITERATION/OSTEOPLASTIC FLAP; Surgeon:JIMMY RODRIGUEZ; Location:MAIN OR; Service:Otolaryngology [place] APPLICATION MULTIPLANE EXTERNAL FIXATION SYSTEM 10/06/2008 Procedure:FACIAL LACERATIONS W/NERVE REPAIR, FACIAL NERVE GRAFT; Surgeon:AUTUMN MOELLER; Location:MAIN OR; Service:Orthopaedics [place] CARPECTOMY ALL BONES PROXIMAL ROW 10/10/2008 Procedure:OPEN REDUCTION SCAPHOID; Surgeon:SAHRA JENSEN; Location:MAIN OR; Service:Orthopaedics [place] CLTX CARPAL BONE FX W/MANJ EACH BONE 10/06/2008 Procedure:IRRIGATION/DEBRIDEMENT ELBOW; Surgeon:AUTUMN MOELLER; Location:MAIN OR; Service:Orthopaedics [place] DBRDMT FX&/DISLC SUBQ T/M/F BONE 10/09/2008 Procedure:OPEN REDUCTION DISTAL FEMUR CONDYLE FX PERIARTICULAR; Surgeon:RUBIA RICHTER V; Location:MAIN OR; Service:Orthopaedics [place] DBRDMT FX&/DISLC SUBQ T/M/F BONE 10/06/2008 Procedure:OPEN REDUCTION TIBIA (L.I.S.S.); Surgeon:AUTUMN MOELLER; Location:MAIN OR; Service:Orthopaedics [place] DEBRIDEMENT BONE MUSCLE &/FASCIA 20 SQ CM/< 10/06/2008 Procedure:EXTERNAL FIXATION (ALEXANDER) FEMUR FRACTURE; Surgeon:AUTUMN MOELLER; Location:MAIN OR; Service:Orthopaedics [place] OPEN TX COMPLICATED FRONTAL SINUS FRACTURE 10/12/2008 Procedure:FRONTAL SINUS OBLITERATION/OSTEOPLASTIC FLAP; Surgeon:JIMMY RODRIGUEZ; Location:MAIN OR; Service:Otolaryngology [place] OPTX FEM SHFT FX W/INSJ IMED IMPLT W/WO SCREW 10/06/2008 Procedure:INTRAMEDULLARY RODDING FEMUR AO RETROGRADE; Surgeon:AUTUMN MOELLER; Location:MAIN OR; Service:Orthopaedics [place] OPTX FEM SHFT FX W/PLATE/SCREWS W/WO CERCLAGE 10/09/2008 Procedure:OPEN REDUCTION DISTAL FEMUR CONDYLE FX PERIARTICULAR; Surgeon:RUBIA RICHTER V; Location:MAIN OR; Service:Orthopaedics [place] REMOVAL EXTERNAL FIXATION SYSTEM UNDER ANES 10/09/2008 Procedure:OPEN REDUCTION DISTAL FEMUR CONDYLE FX PERIARTICULAR; Surgeon:RUBIA RICHTER V; Location:MAIN OR; Service:Orthopaedics [place] REMOVAL IMPLANT DEEP 05/23/2011 Procedure: HARDWARE REMOVAL HIP; Surgeon: Rubia Richter MD; Location: MAIN OR; Service: Orthopaedics [place] TISSUE GRAFTS OTHER 10/12/2008 Procedure:FRONTAL SINUS OBLITERATION/OSTEOPLASTIC FLAP; Surgeon:JIMMY RODRIGUEZ; Location:MAIN OR; Service:Otolaryngology [place] INTER/[place]/SUBTRCHNTRIC FEMORAL FX SCREW IMPLT 10/06/2008 Procedure:OPEN REDUCTION HIP FRACTURE AO DHS; Surgeon:AUTUMN MOELLER; Location:MAIN OR; Service:Orthopaedics PROSTATECTOMY SINUS SURGERY TIBIA FRACTURE SURGERY TONSILLECTOMY VASECTOMY VASECTOMY WRIST SURGERY [2] Family History Problem Relation Age of Onset Hypertension Maternal Grandmother Cancer Maternal Grandfather Hypertension Paternal Grandmother Diabetes Paternal Grandmother Hypertension Paternal Grandfather Diabetes Paternal Grandfather Heart Disease Father Diabetes Father High Cholesterol Father Cancer Father Cancer Mother deseased Arthritis-rheumatoid Mother Heart Disease Mother High Cholesterol Mother Hypertension Mother Arthritis Mother Deseased No Known Problems Daughter No Known Problems Son No Known Problems Son [3] Social History Tobacco Use Smoking status: Never Smokeless tobacco: Never Substance Use Topics Alcohol use: Yes Alcohol/week: 2.0 standard drinks of alcohol Types: 1 Glasses of wine, 1 Cans of beer per week Comment: 1 or more times a month Drug use: No [4] Allergies Allergen Reactions No Known Allergies NO REACTION Jimmy Rodriguez MD NOTEWRITER PROCEDURES Final Re sult from Last 3 Months Insurance [employer] MEDICARE COMPLETE A[employer] MEDICARE COMPLETE Advance Directives For more information, please contact: [phone] * Full Code (Latest Code Status on File) Date Activated Date Inactivated Comments 09/25/2022 5:40 PM 09/26/2022 4:40 PM * Full Code Date Activated Date Inactivated Comments 10/15/2008 12:43 PM 10/21/2008 1:03 PM Care Teams Roof Technician Relationship Specialty Start Date End Date Joy Alvarez [address] [phone] PCP - General Family Practice 01/31/25 Jimmy Rodriguez MD [address] [place] [phone] Otolaryngology 04/01/24
--- OUTSIDE RECORDS SUMMARY | 2025-04-08 17:08 | XMS_ITS | Encounter Summary ---
Author Organization [facility] Care Address [address] [place] [address] Phone Care Team Providers Care Pig Conveyor Operator Name Role Phone Huber Morin Primary Care Provider [phone] Provider, No-Primary Care Unavailable Lo koenig Provider, No-Primary Care Primary Care Provider Unavailable Neelam Landaverde MD, Sukhdeep Unavailable [phone] Sridevi Mack Primary Care Provider [phone] Arturo Orona MD Unavailable Joy Alvarez Primary Care Provider [phone] Encounter Details Date Type Department Care Team (Late st Contact Info) Description 03/24/2009 [facility] - Interventional Radiology [address] [place] [address] Michaela Molina Social History Tobacco Use Types Packs/Day Years [...] Info) Description 01/30/2026 2:55 PM CDT Appointment [place] - [facility] - Radiology [address] [phone] 01/30/2026 4:00 PM CDT Appointment [place] - [facility] - Otolaryngology [address] [phone] Arturo Orona MD [address] [place] [phone] documented as of this encounter Procedures Procedure Name Priority Date/Time Associated Diagnosis Comments EXTERNAL INR Routine 03/23/2009 documented in this encounter Results * EXTERNAL INR (03/23/2009) INR - External 1.9 [facility] 03/23/2009 us Patient Reported EXTERNAL LABS Final Result Performing Organization Address [facility] Co de Phone Number [facility] [address] [place] [address], documented in this encounter Visit Diagnoses Not on filedocumented in this encounter Care Teams Pig Conveyor Operator Relationship Specialty Start Date End Date Huber Morin [address] [place] [address] [phone] PCP - General 09/11/12 05/02/13 Provider, No-Primary Care [place] PCP - Accountable Care Organization 08/28/12 10/07/12 Provider, No-Primary Care [place] PCP - General 02/07/23 03/31/24 Sridevi Mack [address] [place] [phone] PCP - General Family Practice 04/01/24 01/30/25 Joy Alvarez [address] [place] [phone] PCP - General Family Practice 01/31/25 Sukhdeep Richter MD [address] [place] [address] Orthopedic Surgery 02/07/23 08/03/23 Arturo Orona MD [address] [place] [address] Otolaryngology 04/01/24 documented as of this encounter
--- OUTSIDE RECORDS SUMMARY | 2025-04-08 17:08 | XMS_ITS | Encounter Summary ---
Author Organization [facility] Care Address [address] [place] [address] Phone Care Team Providers Care Manager Critical Care Name Role Phone Provider, No-Primary Care Primary Care Provider Unavailable Neelam Landaverde MD, James Unavailable [phone] Sridevi Mack Primary Care Provider [phone] Arturo Orona MD Unavailable [phone] Joy Alvarez Primary Care Provider Encounter Details Date Type Department Care Team (Late st Contact Info) Description 09/25/2022 Pharmacy Visit [facility] - Pharmacy - Discharge [address] [place] [address] Social History Tobacco Use Types [...] Info) Description 01/30/2026 2:55 PM CDT Appointment [place] - IR - Radiology [address] [phone] 01/30/2026 4:00 PM CDT Appointment [facility] - Otolaryngology [address] [phone] Arturo Orona MD [address] [place] [address] documented as of this encounter Visit Diagnoses Not on filedocumented in this encounter Additional Health Concerns Assessment Noted Time A fall risk assessment has been complete d for the patient 09/25/2022 8:49 PM CDT documented as of this encounter Care Teams Manager Critical Care Relationship Specialty Start Date End Date Provider, No-Primary Care [place] PCP - General 02/07/23 03/31/24 Sridevi Mack [address] [place] [phone] PCP - General Family Practice 04/01/24 01/30/25 Joy Alvarez [address] [place] [phone] PCP - General Family Practice 01/31/25 Sukhdeep Richter MD [address] [place] [address] Orthopedic Surgery 02/07/23 08/03/23 Arturo Orona MD [address] [place] [address] Otolaryngology 04/01/24 documented as of this encounter
--- OUTSIDE RECORDS SUMMARY | 2025-04-08 17:08 | XMS_ITS | Encounter Summary ---
Author Organization [facility] Care Address [address] [place] [address] Phone Care Team Providers Care Fire Chief Name Role Phone Provider, No-Primary Care Primary Care Provider Unavailable Neelam Landaverde MD, James Unavailable [phone] Sridevi Mack Primary Care Provider [phone] Arturo Orona MD Unavailable [phone] Joy Alvarez Primary Care Provider [phone] Encounter Details Date Type Department Care Team (Late st Contact Info) Description 11/04/2019 Pharmacy Visit [facility] - Pharmacy - ASC [address] [place] [address] Social History Tobacco Use Types [...] Industry Job Start Date Job End Date Meghan Not on file Not on file Not on file documented as of this encounter Plan of Treatment Upcoming Encounters Date Type Department Care Team (Late st Contact Info) Description 01/30/2026 2:55 PM CDT Appointment [place] - [facility] - Radiology [address] [place] [phone] 01/30/2026 4:00 PM CDT Appointment [place] - [facility] - Otolaryngology [address] [place] [address] Arturo Orona MD [address] [place] [address] documented as of this encounter Visit Diagnoses Not on filedocumented in this encounter Additional Health Concerns Assessment Noted Time A fall risk assessment has been complete d for the patient 10/19/2019 2:13 PM CDT documented as of this encounter Care Teams Fire Chief Relationship Specialty Start Date End Date Provider, No-Primary Care [place] PCP - General 02/07/23 03/31/24 Sridevi Mack [address] [place] [phone] PCP - General Family Practice 04/01/24 01/30/25 Joy Alvarez [address] [place] [phone] PCP - General Family Practice 01/31/25 Sukhdeep Richter MD [address] [place] [address] Orthopedic Surgery 02/07/23 08/03/23 Arturo Orona MD [address] [place] [address] Otolaryngology 04/01/24 documented as of this encounter
--- OUTSIDE RECORDS SUMMARY | 2025-04-08 17:08 | XMS_ITS | Encounter Summary ---
Author Organization [facility] Care Address [address] [place] [address] Phone Care Team Providers Care Transportation Dispatch Manager Name Role Phone Provider, No-Primary Care Primary Care Provider Unavailable Sridevi Mack Primary Care Provider [phone] Arturo Orona MD Unavailable Joy Alvarez Primary Care Provider [phone] Encounter Details Date Type Department Care Team (Late st Contact Info) Description 03/19/2024 Pharmacy Visit [place] - [facility] - Pharmacy [address] [place] [address] Social History Tobacco Use Types Packs/Day Years [...] feel unsafe at home? Not on file 06/2023 Has anyone tried to force yo [...] Info) Description 01/30/2026 2:55 PM CDT Appointment [place] - IR - Radiology [address] [place] [phone] 01/30/2026 4:00 PM CDT Appointment [place] - [place] - Otolaryngology [address] [phone] Arturo Orona MD [address] [place] [address] documented as of this encounter Visit Diagnoses Not on filedocumented in this encounter Additional Health Concerns Assessment Noted Time A fall risk assessment has been complete d for the patient 2024 8:21 AM CDT documented as of this encounter Care Teams Transportation Dispatch Manager Relationship Specialty Start Date End Date Provider, No-Primary Care [place] PCP - General 02/07/23 03/31/24 Sridevi Mack [address] [place] [phone] PCP - General Family Practice 04/01/24 01/30/25 Joy Alvarez [address] [place] [phone] PCP - General Family Practice 01/31/25 Arturo Orona MD [address] [place] [address] Otolaryngology 04/01/24 documented as of this encounter
--- OUTSIDE RECORDS SUMMARY | 2025-04-08 17:08 | XMS_ITS | Referral Summary ---
Author Organization [facility] Care Address [address] [place] [address] Phone Care Team Providers Care Block Splitter Operator Name Role Phone Jimmy Rodriguez MD Unavailable [phone] Joy Alvarez Primary Care Provider [phone] Source Comments This disclosure is being made pursuant to the Care Everywhere program,applicable federal and state laws, and may not contain all informationavailable regarding this patient.[facility] Practices Encounters Date Type Department Care Team Description 04/04/2025 Refill [facility] Otolaryngology [address] [place] [phone] Jimmy Rodriguez MD 01/31/2025 Travel 01/31/2025 10:45 AM CDT Office Visit [facility] Otolaryngology [address] [place] [phone] Jimmy Rodriguez MD from Last 3 Months Allergies Active Allergy Reactions Criticality Noted Date Comments No Known Allergies NO REACTION 10/15/2008 Medications pantoprazole 40 mg EC tablet Take 1 tablet (40 mg total) by mouth daily. Active cyclobenzaprin e 10 mg tablet as needed. 02/12/20 19 Active citalopram 20 mg tablet 1 tablet (20 mg total) daily. 02/12/20 Active sodium chloride 0.65 % nasal sprayIndicatio ns:Nasal deformity Use 1 spray into both nostrils 3 times daily as needed for congestion. 45 mL 11 11/04/19 Active saw palmetto 160 mg capsule Take 1 capsule (160 mg total) by mouth. Active traMADol 50 mg tablet Take 1 tablet (50 mg total) by mouth every 12 hours. 10/26/19 Active escitalopram oxalate (LEXAPRO) 10 mg tablet [...] to 8 oz saline solution. 60 mL 11 02/02/20 24 Active famotidine (PEPCID) 40 mg [...] NOSTRIL TWICE A DAY DIRECTED 30 mL 11 04/04/20 25 Active azelastine (ASTELIN) 0.1 % [...] 19 Shortness of breath 10/19/2016 04/20/20 19 Immunizations Immunization Administration Dates Next Due COVID-19, mRNA (MODERNA) 100mcg/0.5mL 05/16/2021 ,09/29/2020,09/01/2020 Influenza 02/24/2018,03/01/2013 Influenza, Quadrivalent Adjuvanted PF 04/30/2022 Influenza, quadrivalent 03/31/2017 Influenza, quadrivalent PF 03/28/2021,,03/28/2019,2017,03/22/2016 Influenza, unspecified 02/24/2018,03/16/2017,12/2015 Novel Influenza H1N1, PF 04/27/2009 Pneumococcal Conjugate, PCV1 3 (Prevnar 13) 06/19/2018 Pneumococcal Polysaccharide, PPSV23 (Pneumovax 23) 12/27/2020 Tdap 11/19/2018 Zoster, live (Zostavax) 05/06/2016 Zoster, recombinant (Shingrix) 05/22/2018,2017 Social History Tobacco Use Types Packs/Day Years [...] Info) Description 01/30/2026 2:55 PM CDT Appointment [place] - IR - Radiology [address] [place] [phone] 01/30/2026 4:00 PM CDT Appointment [facility] - Otolaryngology [address] [phone] Jimmy Rodriguez MD [address] [place] [address] Medical Devices Implanted Type Area Automotive Engineering Teacher Device Identifier Shelf Expiration Date Model / Serial / Lot Log [id number] - Tray Ao Dhs/Dcs Basic Inst/Screw - 1 - Plate Ao Dynamic Hip Screw Std 135 Deg2h 46mm Implanted:Qty: 1 on 10/06/2008 at [facility] Left: Femur SYNTHES Screw Ao Cecil 32.0mm Thread Length 95.0mm - [id number] Implanted:Qty: 1 on 10/06/2008 at [facility] Left: Femur SYNTHES [id number] / [id number] / Log [id number] - Tray Ao Dhs/Dcs Basic Inst/Screw - 1 - Screw Ao Hip Dynamic Compressing 3.5mm Hex Head 36mm Implanted:Qty: 1 on 10/06/2008 at [facility] Left: Femur SYNTHES Femoral Nail Implanted:Qty: 1 on 10/06/2008 at [facility] Left: Femur SYNTHES 01/15/2016 [id number] / / [id number] Description:Synthes Clamp Implanted:Qty: 4 on 10/06/2008 at [facility] Right: Leg SYNTHES [id number] / / Open Adjustable Clamps Implanted:Qty: 4 on 10/06/2008 at [facility] Right: Leg SYNTHES [id number] / / Screw Ao Titanium Locking [address] 5.0 30mm - [id number] Implanted:Qty: 1 on 10/06/2008 at [facility] Left: Femur SYNTHES [id number] / [id number] / Log 65564 - Tray Ao Dyn Hip Screw/Plate - 1 - Screw Ao Hip Dynamic Lag Screw 110mm Implanted:Qty: 1 on 10/06/2008 at [facility] Left: Femur SYNTHES [id number] / [id number] / Screw Locking Star [address] Titanium 5.0 X 85mm - [id number] Implanted:Qty: 1 on 10/06/2008 at [facility] Left: Femur SYNTHES [id number] 5 / [id number] / Screw Ao Titanium Locking [address] 5.0 62mm - [id number] Implanted:Qty: 1 on 10/06/2008 at [facility] Left: Femur SYNTHES [id number] 2 / [id number] / Log 71690 - Tray Ao Periart Locking Femoral Plate - 1 - Plate Ao 4.5 Lcp Condylar Plate 12h Rt 278mm Implanted:Qty: 1 on 10/09/2008 at [facility] Right: Femur SYNTHES [id number] / / Log 78938 - Tray Ao Periarticular Lock Screw/Inst - 1 - Screw Ao Cecil Locking 5.0mm X 25mm Implanted:Qty: 2 on 10/09/2008 at [facility] Right: Femur SYNTHES [id number] / / Log 74840 - Tray Ao Periarticular Lock Screw/Inst - 1 - Screw Ao Cecil Locking 5.0mm X 70mm Implanted:Qty: 1 on 10/09/2008 at [facility] Right: Femur SYNTHES [id number] / / Log [id number] - Tray Ao Periarticular Lock Screw/Inst - 1 - Screw Ao Cecil Locking 5.0mm X 80mm Implanted:Qty: 1 on 10/09/2008 at [facility] Right: Femur SYNTHES [id number] / / Log [id number] - Tray Ao Periarticular Lock Screw/Inst - 1 - Screw Ao Cecil Locking 5.0mm X 85mm Implanted:Qty: 1 on 10/09/2008 at [facility] Right: Femur SYNTHES [id number] / / Log 97042 - Tray Ao Periarticular Lock Screw/Inst - 1 - Screw Ao Cecil Conical 7.3mm X 85mm Implanted:Qty: 1 on 10/09/2008 at [facility] Right: Femur SYNTHES [id number] / / Log 07205 - Tray Ao Locking Large Frag Lcp Screws - 1 - Screw Ao Cortex 4.5mm X 34.0mm Implanted:Qty: 1 on 10/09/2008 at [facility] Right: Femur SYNTHES [id number] / / Log 28412 - Tray Ao Locking Large Frag Lcp Screws - 1 - Screw Ao Cortex 4.5mm X 38.0mm Implanted:Qty: 1 on 10/09/2008 at [facility] Right: Femur SYNTHES [id number] / / Log 28703 - Tray Ao Locking Large Frag Lcp Screws - 1 - Screw Ao Cortex 4.5mm X 46.0mm Implanted:Qty: 1 on 10/09/2008 at [facility] Right: Femur SYNTHES [id number] / / Log 68144 - Tray Ao Locking Large Frag Lcp Screws - 1 - Screw Ao Cortex 4.5mm X 50.0mm Implanted:Qty: 1 on 10/09/2008 at [facility] Right: Femur SYNTHES / / Log 19911 - Tray Ao Locking Large Frag Lcp Screws - 1 - Screw Ao Cortex 4.5mm X 52.0mm Implanted:Qty: 1 on 10/09/2008 at [facility] Right: Femur SYNTHES [id number] / / Log 45136 - Tray Ao Locking Large Frag Lcp Screws - 1 - Screw Ao Cortex 4.5mm X 58.0mm Implanted:Qty: 2 on 10/09/2008 at [facility] Right: Femur SYNTHES [id number] / / Log 45573 - Tray Ao Locking Large Frag Lcp Screws - 1 - Screw Ao Locking Self-Tapping T25 Stardrive 5.0mm X 34mm Implanted:Qty: 1 on 10/09/2008 at [facility] Right: Femur SYNTHES [id number] / / Log 11349 - Tray Ao Locking Large Frag Lcp Screws - 1 - Screw Ao Locking Self-Tapping T25 Stardrive 5.0mm X 36mm Implanted:Qty: 1 on 10/09/2008 at [facility] Right: Femur SYNTHES [id number] / / Log 50605 - Tray Ao Locking Large Frag Lcp Screws - 1 - Screw Ao Locking Self-Tapping T25 Stardrive 5.0mm X 38mm Implanted:Qty: 4 on 10/09/2008 at [facility] Right: Femur SYNTHES [id number] / / Log 05956 - Tray Ao Locking Large Frag Lcp Screws - 1 - Screw Ao Locking Self-Tapping T25 Stardrive 5.0mm X 40mm Implanted:Qty: 1 on 10/09/2008 at [facility] Right: Femur SYNTHES [id number] / / Log 19544 - Tray Kls Maxillofacial Implant Inst T - 1 - Plate Micro Straight 4h Medium Implanted:Qty: 1 on 10/12/2008 at [facility] Bilateral: Head DOT [id number] / / Log 21812 - Tray Kls Maxillofacial Implant Inst T - 1 - Screw Cross-Drive Drill Free Micro 1.5mm X 4mm Implanted:Qty: 22 on 10/12/2008 at [facility] Bilateral: Head DOT [id number] / / Log 08989 - Tray Kls Maxillofacial Implant Inst T - 1 - Plate Micro L-Shape Right Long Implanted:Qty: 1 on 10/12/2008 at [facility] Bilateral: Head DOT [id number] / / Log 16594 - Tray Kls Maxillofacial Implant Inst T - 1 - Plate Micro Straight 4h Regular Implanted:Qty: 1 on 10/12/2008 at [facility] Bilateral: Head DOT [id number] / / Log 83451 - Tray Kls Maxillofacial Implant Inst T - 1 - Plate Micro Straight 6h Medium Implanted:Qty: 1 on 10/12/2008 at [facility] Bilateral: Head DOT [id number] / / Moca Suture Qfix 2.8mm - [id number] Implanted:Qty: 1 on 09/25/2022 by Rubia Richter MD at [facility] Right: Shoulder [employer]ATION 05/17/2025 [id number] / / [id number] Moca Suture Qfix 2.8mm - [id number] Implanted:Qty: 1 on 09/25/2022 by Rubia Richetr MD at [facility] Right: Shoulder [employer] 04/22/2025 [id number] / / [id number] Moca Suture Qfix 2.8mm - [id number] Implanted:Qty: 1 on 09/25/2022 by Rubia Richter MD at [facility] Right: Shoulder [employer] 05/21/2025 [id number] / / [id number] Moca Suture Qfix 2.8mm - [id number] Implanted:Qty: 1 on 09/25/2022 by Rubia Richter MD at [facility] Right: Shoulder [employer] 05/17/2025 [id number] / / [id number] Shoulder Moca Quattro Link 4.5mm - [id number] Implanted:Qty: 1 on 09/25/2022 by Rubia Richter MD at [facility] Right: Shoulder [employer] 07/01/2027 [id number] / / [id number] Shoulder Moca Quattro Link 4.5mm - [id number] Implanted:Qty: 1 on 09/25/2022 by Rubia Richter MD at [facility] Right: Shoulder [employer] 04/17/2027 [id number] / / [id number] Explanted Type Area Automotive Engineering Teacher Device Identifier Shelf Expiration Date Model / Serial / Lot Ao Screws Explanted:2010 by Sanjeev Zurita at [facility] (Quantity not on file) Left: Hip [...] was discussed. Patient saw speech therapy on 04 19. Follow-up visit for Dr. Alexander for 09 17 was canceled. Procedure note Flexible fiberoptic nasal [...] OBLITERATION/OSTEOPLASTIC FLAP; Surgeon:JIMMY RODRIGUEZ; Location:MAIN OR; Service:Otolaryngology [place] APPLICATION MULTIPLANE EXTERNAL FIXATION SYSTEM 10/06/2008 Procedure:FACIAL LACERATIONS W/NERVE REPAIR, FACIAL NERVE GRAFT; Surgeon:AUTUMN MOELLER; Location:MAIN OR; Service:Orthopaedics [place] CARPECTOMY ALL BONES PROXIMAL ROW 10/10/2008 Procedure:OPEN REDUCTION SCAPHOID; Surgeon:SAHRA JENSEN; Location:MAIN OR; Service:Orthopaedics [place] CLTX CARPAL BONE FX W/MANJ EACH BONE 10/06/2008 Procedure:IRRIGATION/DEBRIDEMENT ELBOW; Surgeon:AUTUMN MOELLER; Location:MAIN OR; Service:Orthopaedics [place] DBRDMT FX&/DISLC SUBQ T/M/F BONE 10/09/2008 Procedure:OPEN REDUCTION DISTAL FEMUR CONDYLE FX PERIARTICULAR; Surgeon:RUBIA RICHTER V; Location:MAIN OR; Service:Orthopaedics [place] DBRDMT FX&/DISLC SUBQ T/M/F BONE 10/06/2008 Procedure:OPEN REDUCTION TIBIA (L.I.S.S.); Surgeon:AUTUMN MOELLER; Location:MAIN OR; Service:Orthopaedics [place] DEBRIDEMENT BONE MUSCLE &/FASCIA 20 SQ CM/< 10/06/2008 Procedure:EXTERNAL FIXATION (CHAVA) FEMUR FRACTURE; Surgeon:AUTUMN MOELLER; Location:MAIN OR; Service:Orthopaedics [place] OPEN [place] COMPLICATED FRONTAL SINUS FRACTURE 10/12/2008 Procedure:FRONTAL SINUS OBLITERATION/OSTEOPLASTIC FLAP; Surgeon:JIMMY RODRIGUEZ; Location:MAIN OR; Service:Otolaryngology [place] OPTX FEM SHFT FX W/INSJ IMED IMPLT W/WO SCREW 10/06/2008 Procedure:INTRAMEDULLARY RODDING FEMUR AO RETROGRADE; Surgeon:AUTUMN MOELLER; Location:MAIN OR; Service:Orthopaedics [place] OPTX FEM SHFT FX W/PLATE/SCREWS W/WO CERCLAGE 10/09/2008 Procedure:OPEN REDUCTION DISTAL FEMUR CONDYLE FX PERIARTICULAR; Surgeon:RUBIA RICHTER V; Location:MAIN OR; Service:Orthopaedics [place] REMOVAL EXTERNAL FIXATION SYSTEM UNDER ANES 10/09/2008 Procedure:OPEN REDUCTION DISTAL FEMUR CONDYLE FX PERIARTICULAR; Surgeon:RUBIA RICHTER V; Location:MAIN OR; Service:Orthopaedics [place] REMOVAL IMPLANT DEEP 05/23/2011 Procedure: HARDWARE REMOVAL HIP; Surgeon: Rubia Richter MD; Location: MAIN OR; Service: Orthopaedics [place] TISSUE GRAFTS OTHER 10/12/2008 Procedure:FRONTAL SINUS OBLITERATION/OSTEOPLASTIC FLAP; Surgeon:JIMMY RODRIGUEZ; Location:MAIN OR; Service:Otolaryngology [place] INTER/[place]/SUBTRCHNTRIC FEMORAL FX SCREW IMPLT 10/06/2008 Procedure:OPEN REDUCTION [...] Re sult from Last [address] [facility] MEDICARE COMPLETE [facility] MEDICARE COMPLETE Advance Directives For more information, please contact: [phone] * Full Code (Latest Code Status on File) Date Activated Date Inactivated Comments 09/25/2022 5:40 PM 09/26/2022 4:40 PM * Full Code Date Activated Date Inactivated Comments 10/15/2008 12:43 PM 10/21/2008 1:03 PM Care Teams Block Splitter Operator Relationship Specialty Start Date End Date Joy Alvarez [address] [place] [phone] PCP - General Family Practice 01/31/25 Jimmy Rodriguez MD [address] [place] [address] Otolaryngology 04/01/24
[2025-04-08 18:09] VITALS: O2SAT 96
[2025-04-08 18:10] VITALS: BP 146/93; PULSE 68; RESP 20; O2SAT 99
== END 2025-04-08 18:12 | disposition home or self-care (01) ==
DX: J18.9 Pneumonia, unspecified organism (principal); R22.41 Localized swelling, mass and lump, right lower limb; R06.00 Dyspnea, unspecified; M79.604 Pain in right leg; Z86.711 Personal history of pulmonary embolism; R22.2 Localized swelling, mass and lump, trunk; R94.31 Abnormal electrocardiogram [ECG] [EKG]; R00.1 Bradycardia, unspecified
CPT/HCPCS: 36415; 71046; 71275; 80053; 83880; 84484; 85025; 85380; 85610; 85730; 93005; 93971; 99284; Q9967